=== PATIENT | female | born 1990 | race Caucasian/White ===

== ENCOUNTER 2016-12-16 22:16 | Emergency (ER) | payer BC ==
[~2016-12-16] VITALS: Ht 170.2 cm; Wt 62.4 kg
[2016-12-16 22:26] VITALS: Ht 170.2 cm; Wt 62.4 kg
[2016-12-16] MEDS ORDERED: SODIUM CHLORIDE 0.9% 1000ML 1,000 ML IV STA ×2 (22:34)
[2016-12-16] MEDS ORDERED: CEFTRIAXONE SOD INJ 1 GM ADDVIAL IV STA (22:34)
[2016-12-16] MEDS ORDERED: ONDANSETRON INJ 2 MG/ML 2 ML VIAL IV STA (22:34)
[2016-12-16] MEDS ORDERED: KETOROLAC TROMETHAMINE 30 MG/ML VIAL IV STA (22:34)
[2016-12-16 23:19] LABS: URINE APPEARANCE CLEAR (CLEAR); URINE BILIRUBIN NEG (NEG); URINE COLOR YELLOW; URINE NITRITE NEG (NEG); URINE SPECIFIC GRAVITY 1.017 (1.000-1.030); UROBILINOGEN NEG (NEG); ZZUR CULT IF INDIC CLEAN CATCH NO
[2016-12-16 23:24] LABS: MANUAL MICROSCOPIC REQUIRED? NO; REVIEW REQ? NO
[2016-12-16 23:36] LABS: BUN/CREATININE RATIO 10.8 (10-20); CALCIUM 8.5 mg/dl (8.5-10.1); CREATININE 0.9 mg/dl (0.60-1.20); POTASSIUM 3.9 mmol/L (3.5-5.1)
[2016-12-16] MEDS ORDERED: IBUP-103 PO (23:43)
[2016-12-16 23:58] LABS: PREG INTERNAL NEGATIVE QC NEG CLEAR BACKGROUND; PREG INTERNAL POSITIVE QC POS CONTROL LINE
[2016-12-17] MEDS ORDERED: METHYLPREDNISOLONE 125 MG VIAL IV STA (00:06)
[2016-12-17 00:15] LABS: BASO ABS # 0.12 K/uL (0-0.2); BASOPHIL % 1.8 %; COMPLETE YES; EOSINOPHIL % 1.8 %; HEMATOCRIT 34.4 % (37-47); LYMPH ABS # 2.74 K/uL (1.2-3.4); LYMPHOCYTE % 42.1 %; MEAN CELL VOLUME 81.7 fL (80-100); MEAN CORPUSCULAR HEMOGLOBIN 27.3 pg (25-34); MEAN CORPUSCULAR HGB CONC 33.4 g/dl (32-36); MEAN PLATELET VOLUME 8.7 fL (7.4-10.4); NEUTROPHILS % 45.5 %; PLATELET COUNT 139 K/uL (130-400); PLT ESTIMATE NORMAL; RED BLOOD COUNT 4.21 M/uL (4.2-5.4)
--- NOTE | 2016-12-17 00:28 | EMERGENCY ROOM VISIT NOTE ---
History First contact with patient: 22:31 Chief Complaint: URINARY SYMPTOMS Stated Complaint: UTI, KIDNEY PAIN, RASH ON FEET, DIZZY History of Present Illness The patient is a 26 year old female who presents to the Emergency Room with complaints of urinary symptoms with low back pain with fever and chills for the past few days who went to urgent care yesterday and was given Bactrim for UTI . Patient states she already had a rash to her lower legs prior to the antibiotics. She comes in now for back pain. No temperature was taken. She states she had a temperature yesterday at urgent care. No history of allergies to sulfa in the past. She does get frequent recurrent UTIs. She's had 3 UTIs this year. Patient denies bleeding gums, rash or hands, rest or soles, rash to her palms, chest pain, dyspnea, throat tightness, itchiness, skin sloughing, facial swelling, visual problems, abdominal pain, vomiting, diarrhea or any other medical complaints. Review of Systems See HPI for pertinent positives & negatives. A total of 10 systems reviewed and were otherwise negative. Past Medical/Surgical History Appendectomy, tonsillectomy Social History Smoking Status: Never Smoker Smokeless Tobacco Use: No Alcohol Use: occasionally Drug Use: none Marital Status: in relationship Occupation Status: employed Current/Historical Medications Scheduled PRN Ibuprofen Tab (Advil), 200-600 MG PO Q4H PRN for Pain or Fever Allergies Coded Allergies: Azithromycin (Verified Allergy, Intermediate, GI UPSET, 12/16/16) Ciprofloxacin (Verified Allergy, Intermediate, RASH-GI UPSET, 12/16/16) Physical Exam Vital Signs Date Time Temp Pulse Resp B/P Pulse Ox O2 Delivery O2 Flow Rate FiO2 12/16/16 22:26 36.7 88 16 109/68 100 Room Air Physical Exam VITALS: Vitals are noted on the nurse's note and reviewed by myself. Vital signs stable. GENERAL: Pleasant female, in no acute distress, nondiaphoretic, well-developed well-nourished. SKIN: Erythematous macular dermatitis to lower extremities that is blanchable sparing soles of feet The rest of the skin was without rashes, erythema, edema, or bruising. There is no tenting of the skin. Capillary reflex less than 2 seconds. No blisters. No skin sloughing. No bruising. HEAD: Normocephalic atraumatic. EARS: External auditory canals clear, tympanic membranes pearly glover without erythema or effusion bilaterally. EYES: Pupils equal round and reactive to light and accommodation. Conjunctivae without injection, sclerae without icterus. Extraocular movements intact. NOSE: Patent, turbinates without inflammation or discharge. MOUTH: Mucous membranes moist. No bleeding gums Pharynx without erythema or exudate. Uvula midline. Airway patent. Tongue does not deviate. NECK: Supple without nuchal rigidity. No lymphadenopathy. No thyromegaly. Cervical spine is nontender. No JVD. HEART: Regular rate and rhythm without murmurs gallops or rubs. LUNGS: Clear to auscultation bilaterally without wheezes, rales or rhonchi. No dullness to percussion. No retractions or accessory muscle use. ABDOMEN: Positive bowel sounds x 4. Normal tympanic percussion. Soft, nontender, without masses or organomegaly. Youssef sign negative. No guarding or rebound tenderness. Left CVA tenderness MUSCULOSKELETAL: No muscle atrophy, erythema, or edema noted. NEURO: Patient was alert and oriented to person place and time. Normal sensation to light and sharp touch. No focal neurological deficits. Medical Decision & Procedures Laboratory Results 12/16/16 23:00 Red Blood Count 4.21, Mean Corpuscular Volume 81.7, Mean Corpuscular Hemoglobin 27.3, Mean Corpuscular Hemoglobin Concent 33.4, Mean Platelet Volume 8.7 12/16/16 23:00 Test 12/16/16 22:50 12/16/16 23:00 12/16/16 23:05 Urine Color YELLOW Urine Appearance CLEAR (CLEAR) Urine pH 7.0 (4.5-7.5) Urine Specific [place] 1.017 (1.000-1.030) Urine Protein NEG (NEG) Urine Glucose (UA) NEG (NEG) Urine Ketones NEG (NEG) Urine Occult Blood NEG (NEG) Urine Nitrite NEG (NEG) Urine Bilirubin NEG (NEG) Urine Urobilinogen NEG (NEG) Urine Leukocyte Esterase NEG (NEG) White Blood Count 6.50 K/uL (4.8-10.8) Red Blood Count 4.21 M/uL (4.2-5.4) Hemoglobin 11.5 g/dL (12.0-16.0) Hematocrit 34.4 % (37-47) Mean Corpuscular Volume 81.7 fL (80-100) Mean Corpuscular Hemoglobin 27.3 pg (25-34) Mean Corpuscular Hemoglobin Concent 33.4 g/dl (32-36) Platelet Count 139 K/uL (130-400) Mean Platelet Volume 8.7 fL (7.4-10.4) RDW Standard Deviation 42.6 fL (36.4-46.3) RDW Coefficient of Variation 14.4 % (11.5-14.5) Neutrophils % (Manual) 45.5 % Lymphocytes % (Manual) 42.1 % Monocytes % (Manual) 8.8 % Eosinophils % (Manual) 1.8 % Basophils % (Manual) 1.8 % Neutrophils # (Manual) 2.96 K/uL (1.4-6.5) Total Absolute Neutrophils 2.96 K/uL (1.4-6.5) Lymphocytes # (Manual) 2.74 K/uL (1.2-3.4) Total Absolute Lymphocytes 2.74 K/uL (1.2-3.4) Monocytes # (Manual) 0.57 K/uL (0.11-0.59) Eosinophils # (Manual) 0.12 K/uL (0-0.5) Basophils # (Manual) 0.12 K/uL (0-0.2) Platelet Estimate NORMAL Red Blood Cell Morphology Unremarkable Anion Gap 7.0 mmol/L (3-11) Est Creatinine Clear Calc Drug Dose 93.8 ml/min Estimated GFR () 103.7 Estimated GFR (Non- 89.5 BUN/Creatinine Ratio 10.8 (10-20) Calcium Level 8.5 mg/dl (8.5-10.1) Human Chorionic Gonadotropin, Qual NEG (NEG) Bedside Lactic Acid Venous 0.63 mmol/L (0.90-1.70) Medications Administered Medications (Trade) Dose Ordered Sig/Carlitos Route Start Time Stop Time Status Last Admin Dose Admin Sodium Chloride 1,000 ml @ 999 mls/hr Q1H1M STAT IV 12/16/16 22:34 12/16/16 23:34 DC 12/16/16 23:03 999 MLS/HR Sodium Chloride (Nss 1000ml) 1,000 ml @ 125 mls/hr Q8H STAT IV 12/16/16 22:34 12/17/16 06:33 12/16/16 23:03 125 MLS/HR Ceftriaxone Sodium (Rocephin Inj) 1 gm NOW STAT IV 12/16/16 22:34 12/16/16 22:38 DC 12/16/16 23:03 1 GM Ketorolac Tromethamine (Toradol Inj) 30 mg NOW STAT IV 12/16/16 22:34 12/16/16 22:38 DC 12/16/16 23:04 30 MG Ondansetron HCl (Zofran Inj) 4 mg NOW STAT IV 12/16/16 22:34 12/16/16 22:38 DC 12/16/16 23:04 4 MG Methylprednisolone Sodium Succinate (Solu-Medrol IV) 125 mg NOW STAT IV 12/17/16 00:06 12/17/16 00:07 DC 12/17/16 00:22 125 MG ED Course Prior records/ancillary studies reviewed and summarized above. Nursing notes reviewed. Additional history obtained from boyfriend The patient's history was concerning for urinary symptoms with back pain Differential diagnosis: Etiologies such as metabolic, infection, hypo/hyperglycemia, electrolyte abnormalities, pyelonephritis, kidney stone, as well as others were entertained. Physical examination: As above. ER treatment provided: IV Lock Rocephin, Toradol On reassessment the patient felt better. Diagnostics interpretation by me: The labs revealed mild anemia, negative urine, negative hCG Imaging studies: US RENAL: History: Bilateral flank pain, left greater than right Comparison: None Findings: Bilateral kidneys demonstrate normal echotexture and preserved cortical thickness. No hydronephrosis, shadowing calculus, or focal renal lesion. The bladder demonstrates no apparent wall thickening. Bilateral ureteral jets are identified. Incidental note is made of mild enlargement of the spleen, which measures 14 cm in craniocaudal dimension. Impression: 1. No significant sonographic findings in the kidneys. 2. Mildly enlarged spleen. Radiologist: Jv Medrano MD Exam and history seem consistent with resolving UTI. Patient had the rash prior to the antibiotics. She is advised to continue the Bactrim and drink plenty of fluids to flush her bladder. She is advised to follow-up family care in a few days or here in the ER sooner for fevers, flank pain, vomiting, worsening signs or symptoms or as needed. By the evaluation outlined above emergent etiologies such as electrolyte abnormalities, abnormalities blood glucose, metabolic, as well as others were deemed relatively unlikely. The pt informed about the findings as listed above. All questions were answered and pleased with the treatment. Return instructions were outlined and the patient was discharged in stable condition. Referral: The patient was referred back to primary care physician for follow-up in 2 to 3 days for a recheck of the current condition. Medical Decision as above Impression Primary Impression: Urinary tract infection Additional Impressions: Left flank pain Splenomegaly Anemia Departure Information Dispostion Home / Self-Care Condition GOOD Referrals Azra Pino M.D. (PCP) Patient Instructions My [facility] Additional Instructions No sports or strenuous activity until you follow up with your family care Dr. for a slightly enlarged spleen today and mild anemia. Continue: Trimethoprim-Sulfamethoxazole(Bactrim DS): Take one pill twice daily for 7 days for your urine infection. All antibiotics can cause diarrhea. If this occurs and you feel worse or it does not resolve in 1-2 days follow up with your doctor or return to the Emergency Department as this could be signs of serious underlying problems. Any medication can cause an allergic reaction, stop the pills immediately and return to the ER for rash, hives, breathing difficulties, or swelling. Ibuprofen(Motrin, Advil) may be used for fever or pain. Use 600mg every six hours as needed. Take with food. Avoid using more than 2400mg in a 24 hour period. Do not use 2400mg per day for more than three consecutive days without physician direction. Prolonged inappropriate use can lead to stomach upset or ulcers. (AND/OR) Acetaminophen(Tylenol) may be used for fever or pain. Use 1000mg every six hours as needed. Avoid using more than 3000mg in a 24 hour period. Rest and drink plenty of fluids as tolerated. Slow sips of water or sports drinks are recommended instead of large amounts all at once. Continue current medications. Once your stomach is settled start with a clear liquid diet (jello, soup broth, etc.) and then advance as tolerated. You should avoid full, heavy meals for about 24 hrs from the time your symptoms resolved. Return to the ER immediately for worsening or persistent abdominal/back pain, vomiting, fevers, worsening of your condition, or as needed. Follow up with your primary physician within 2-3 days for a recheck of the current condition. Problem Qualifiers Primary Impression: Urinary tract infection Indwelling urinary catheter type: unspecified Encounter type: initial encounter
[2016-12-17 01:01] VITALS: BP 117/61; PULSE 98; TEMP 37; O2SAT 97
--- NOTE | 2016-12-17 07:46 | DIAGNOSTIC IMAGING REPORT ---
ULTRASOUND KIDNEYS AND BLADDER CLINICAL HISTORY: Flank pain. Urinary tract infection. COMPARISON STUDY: No priors. TECHNIQUE: Real-time, grayscale, and color flow sonography of the kidneys and bladder is performed. Images are reviewed in the transverse and longitudinal planes. FINDINGS: Kidneys: The kidneys are normal in size and echotexture. The right kidney measures 10.5 x 3.3 x 5.3 cm and the left kidney measures 10.7 x 4.2 x 4.9 cm. There is no hydronephrosis. No shadowing renal calculi are identified. There is no sonographic evidence of contour deforming renal mass lesion. No perinephric fluid is identified. Bladder: The bladder is normal in appearance. Bilateral ureteral jets were seen. Upper abdomen: Mild splenomegaly is observed. The spleen measures 14.2 cm in length. IMPRESSION: 1. Unremarkable sonographic assessment of the kidneys and bladder. 2. Mild splenomegaly is incidentally noted. Electronically signed by: Adan Ayala M.D. 12/17/2016 7:44 AM Dictated Date/Time: 12/17/2016 7:43 AM
== END 2016-12-17 01:02 | disposition home or self-care (01) ==
LOC: C.EDB 22:20 → C.EDA 12-17 01:02
DX: N39.0 Urinary tract infection, site not specified (principal); R10.9 Unspecified abdominal pain; R16.1 Splenomegaly, not elsewhere classified; D64.9 Anemia, unspecified; M54.5 Low back pain; R21 Rash and other nonspecific skin eruption; Z87.440 Personal history of urinary (tract) infections

== ENCOUNTER → 2016-12-24 | Outpatient (CLI) | payer BC ==
[~2016-12-24] MED LIST: IBUP-103 PO
[2016-12-24 17:48] LABS: HEMATOCRIT 34.1 % (37-47); MEAN CORPUSCULAR HEMOGLOBIN 28.1 pg (25-34); MEAN CORPUSCULAR HGB CONC 33.4 g/dl (32-36); MEAN PLATELET VOLUME 8.7 fL (7.4-10.4); PLATELET COUNT 208 K/uL (130-400); RED BLOOD COUNT 4.06 M/uL (4.2-5.4); WHITE BLOOD COUNT 6.11 K/uL (4.8-10.8)
[2016-12-24 18:15] LABS: ALT/SGPT 424 U/L (12-78); AST/SGOT 241 U/L (15-37); BLOOD UREA NITROGEN 10 mg/dl (7-18); BUN/CREATININE RATIO 15.1 (10-20); CALCIUM 8.3 mg/dl (8.5-10.1); CARBON DIOXIDE 28 mmol/L (21-32); CHLORIDE 108 mmol/L (98-107); CREATININE 0.64 mg/dl (0.60-1.20); GLUCOSE 99 mg/dl (70-99); SODIUM 143 mmol/L (136-145)
[2016-12-24 18:17] LABS: ALB/GLOB RATIO 1.2 (0.9-2); ALKALINE PHOSPHATASE 97 U/L (45-117)
[2016-12-24 19:29] LABS: BASO % 1.5 %; BASO ABS # 0.09 K/uL (0-0.2); COMPLETE YES; EOS % 1.8 %; IG% 0.2 %; LYMPH % 58.4 %; LYMPH ABS # 3.57 K/uL (1.2-3.4); MONO % 10.5 %; NEUT % 27.6 %
== END | disposition home or self-care (01) ==
LOC: C.LAB 17:05
PROVIDERS: ATTEND Family Medicine
DX: R16.1 Splenomegaly, not elsewhere classified (principal)